=== PATIENT | female | born 2000 | race Caucasian/White ===

== ENCOUNTER 2020-04-22 09:55 | Emergency (ER) | payer OTHER ==
[2020-04-22 10:02] VITALS: RESP 18; TEMP 98
[2020-04-22] MEDS ORDERED: SODIUM CHLORIDE 0.9% 1,000 ML IV STA ×2 (10:21)
--- NOTE | 2020-04-22 10:41 | ED ---
General Adult HPI - General Chief complaint: Syncope Stated complaint: Head Injury, Syncope Time Seen by Provider: 04/22/20 10:06 Source: patient, RN notes reviewed, old records reviewed Mode of arrival: ambulatory Limitations: no limitations - History of Present Illness Initial comments: 20-year-old female presents emergency room today for syncopal episode yesterday. She reports she was standing in a gas station felt dizzy lightheaded and passed out. She reports that she struck her head on the ground. Patient states that she was unconscious for a short while. She reports she had a syncopal episode last week for similar such description of situation. Patient states that she has no chest pain shortness of breath. Denies any nausea or vomiting. She reports that she does have some sinus congestion been feeling dizzy for the past day after hitting her head. - Related Data Previous Rx's Medication Instructions Recorded Amoxic-Pot Clav 875-125Mg 1 tab PO Q12HR #20 tablet 04/22/20 [Augmentin 875-125] Fluticasone Nasal [place] [Flonase 1 spray EA NOSTRIL DAILY #1 bottle 04/22/20 Nasal [place]] Meclizine [Antivert] 25 mg PO BID #14 tab 04/22/20 Allergies Allergy/AdvReac Type Severity Reaction Status Date / Time No Known Allergies Allergy Verified 04/22/20 11:08 Review of Systems ROS Statement: Those systems with pertinent positive or pertinent negative responses have been documented in the HPI. ROS Other: All systems not noted in ROS Statement are negative. Past Medical History Past Medical History: No Reported History History of Any Multi-Drug Resistant Organisms: None Reported Past Surgical History: No Surgical Hx Reported Past Psychological History: No Psychological Hx Reported Smoking Status: Never smoker Past Alcohol Use History: None Reported Past Drug Use History: None Reported General Exam - General Exam Comments Initial Comments: 20 year old female. Alert and oriented. No distress. Limitations: no limitations General appearance: alert, in no apparent distress Head exam: Present: atraumatic, normocephalic, normal inspection Eye exam: Present: normal appearance, PERRL, EOMI. Absent: scleral icterus, conjunctival injection, periorbital swelling ENT exam: Present: normal exam, normal oropharynx, mucous membranes moist, other (no hematympania) Neck exam: Present: normal inspection. Absent: tenderness, meningismus, lymphadenopathy Respiratory exam: Present: normal lung sounds bilaterally. Absent: respiratory distress, wheezes, rales, rhonchi, stridor Cardiovascular Exam: Present: regular rate, normal rhythm, normal heart sounds. Absent: systolic murmur, diastolic murmur, rubs, gallop, clicks GI/Abdominal exam: Present: soft, normal bowel sounds. Absent: distended, tenderness, guarding, rebound, rigid Extremities exam: Present: normal inspection, full ROM, normal capillary refill. Absent: tenderness, pedal edema, joint swelling, calf tenderness Back exam: Present: normal inspection Neurological exam: Present: alert, oriented X3, CN II-XII intact Psychiatric exam: Present: normal affect, normal mood Skin exam: Present: warm, dry, intact, normal color. Absent: rash Course Vital Signs 04/22/20 04/22/20 04/22/20 09:57 11:06 11:36 Temperature 98 F Pulse Rate 89 77 93 Respiratory 18 18 18 Rate Blood Pressure 122/85 107/76 107/78 O2 Sat by Pulse 96 100 97 Oximetry 04/22/20 12:25 Temperature Pulse Rate 83 Respiratory 18 Rate Blood Pressure 108/75 O2 Sat by Pulse 100 Oximetry Medical Decision Making - Medical Decision Making 3-year-old female presents emergency room today for syncopal episode yesterday. He felt struck her head against station. She is feeling dizzy since that time. Any chest pain or shortness breath. Patient's labs reviewed and unremarkable. Patient had a CT of the brain and C-spine. I question some mastoiditis. Patient has no mastoid tenderness. No signs of ear infection. She could have some left sinus tenderness. CT question sphenoid sinusitis. Discussed treating the Patient at this time instructed her antibiotic meclizine for dizziness. Patient's EKG was unremarkable. Discussed the patient's most likely cause for her passing out is due to orthostatic hypotension. Advised her to drink plenty fluids. I discussed return parameters. Advised follow-up with PCP. - Lab Data Result diagrams: 04/22/20 10:25 04/22/20 10:25 Lab Results 04/22/20 04/22/20 04/22/20 Range/Units 10:25 10:25 10:29 WBC 7.5 (4.0-11.0) k/uL RBC 4.63 (3.80-5.40) m/uL Hgb 14.8 (11.4-16.0) gm/dL Hct 44.3 (34.0-46.0) % MCV 95.6 (80.0-100.0) fL MCH 32.0 (25.0-35.0) pg MCHC 33.5 (31.0-37.0) g/dL RDW 12.2 (11.5-15.5) % Plt Count 349 (150-450) k/uL Neutrophils % 57 % Lymphocytes % 33 % Monocytes % 5 % Eosinophils % 2 % Basophils % 0 % Neutrophils # 4.3 (1.3-7.7) k/uL Lymphocytes # 2.5 (1.0-4.8) k/uL Monocytes # 0.4 (0-1.0) k/uL Eosinophils # 0.1 (0-0.7) k/uL Basophils # 0.0 (0-0.2) k/uL PT (9.0-12.0) sec INR (<1.2) APTT (22.0-30.0) sec Sodium 139 (137-145) mmol/L Potassium 3.9 (3.5-5.1) mmol/L Chloride 102 (98-107) mmol/L Carbon Dioxide 26 (22-30) mmol/L Anion Gap 11 mmol/L BUN 9 (7-17) mg/dL Creatinine 0.64 (0.52-1.04) mg/dL Est GFR (CKD-EPI)AfAm >90 (>60 ml/min/1.73 sqM) Est GFR (CKD-EPI)NonAf >90 (>60 ml/min/1.73 sqM) Glucose 121 H (74-99) mg/dL Calcium 9.6 (8.4-10.2) mg/dL Magnesium 2.0 (1.6-2.3) mg/dL Total Bilirubin 0.5 (0.2-1.3) mg/dL AST 39 H (14-36) U/L ALT 42 H (4-34) U/L Alkaline Phosphatase 62 (38-126) U/L Troponin I (0.000-0.034) ng/mL Total Protein 7.4 (6.3-8.2) g/dL Albumin 4.5 (3.5-5.0) g/dL Urine Color Light Yellow Urine Appearance Clear (Clear) Urine pH 6.5 (5.0-8.0) Ur Specific [place] 1.004 (1.001-1.035) Urine Protein Negative (Negative) Urine Glucose (UA) Negative (Negative) Urine Ketones Negative (Negative) Urine Blood Small H (Negative) Urine Nitrite Negative (Negative) Urine Bilirubin Negative (Negative) Urine Urobilinogen <2.0 (<2.0) mg/dL Ur Leukocyte Esterase Negative (Negative) Urine RBC 1 (0-5) /hpf Urine WBC 3 (0-5) /hpf Ur Squamous Epith Cells 1 (0-4) /hpf Urine HCG, Qual (Not Detectd) 04/22/20 04/22/20 04/22/20 Range/Units 10:29 10:30 10:30 WBC (4.0-11.0) k/uL RBC (3.80-5.40) m/uL Hgb (11.4-16.0) gm/dL Hct (34.0-46.0) % MCV (80.0-100.0) fL MCH (25.0-35.0) pg MCHC (31.0-37.0) g/dL RDW (11.5-15.5) % Plt Count (150-450) k/uL Neutrophils % % Lymphocytes % % Monocytes % % Eosinophils % % Basophils % % Neutrophils # (1.3-7.7) k/uL Lymphocytes # (1.0-4.8) k/uL Monocytes # (0-1.0) k/uL Eosinophils # (0-0.7) k/uL Basophils # (0-0.2) k/uL PT 9.7 (9.0-12.0) sec INR 0.9 (<1.2) APTT 22.9 (22.0-30.0) sec Sodium (137-145) mmol/L Potassium (3.5-5.1) mmol/L Chloride (98-107) mmol/L Carbon Dioxide (22-30) mmol/L Anion Gap mmol/L BUN (7-17) mg/dL Creatinine (0.52-1.04) mg/dL Est GFR (CKD-EPI)AfAm (>60 ml/min/1.73 sqM) Est GFR (CKD-EPI)NonAf (>60 ml/min/1.73 sqM) Glucose (74-99) mg/dL Calcium (8.4-10.2) mg/dL Magnesium (1.6-2.3) mg/dL Total Bilirubin (0.2-1.3) mg/dL AST (14-36) U/L ALT (4-34) U/L Alkaline Phosphatase (38-126) U/L Troponin I <0.012 (0.000-0.034) ng/mL Total Protein (6.3-8.2) g/dL Albumin (3.5-5.0) g/dL Urine Color Urine Appearance (Clear) Urine pH (5.0-8.0) Ur Specific [place] (1.001-1.035) Urine Protein (Negative) Urine Glucose (UA) (Negative) Urine Ketones (Negative) Urine Blood (Negative) Urine Nitrite (Negative) Urine Bilirubin (Negative) Urine Urobilinogen (<2.0) mg/dL Ur Leukocyte Esterase (Negative) Urine RBC (0-5) /hpf Urine WBC (0-5) /hpf Ur Squamous Epith Cells (0-4) /hpf Urine HCG, Qual Not Detected (Not Detectd) 04/22/20 10:41 EKG shows normal sinus rhythm with sinus arrhythmia, normal EKG. Ventricular rate of 77 bpm. MD interval is 144 ms. QRS duration is 90 ms. QT QTc is 364/411 ms. - Radiology Data Radiology results: report reviewed CT of the C-spine shows no acute fracture dislocation. CT of the brain of intracranial hemorrhage or midline shift. Possible left-sided mastoiditis correlated clinically. Left sphenoid sinus disease. Chest x-ray is shows no acute process. Disposition Clinical Impression: Concussion, Syncopal episodes Disposition: HOME SELF-CARE Condition: Good Instructions (If sedation given, give patient instructions): Syncope (ED) Additional Instructions: Patient is to drink clear fluids and eat frequently.. Please follow up with family doctor if symptoms have not improved over the next two days. Please return to the emergency room if your symptoms increase or worsen or for any other concerns. Prescriptions: Meclizine [Antivert] 25 mg PO BID #14 tab Amoxic-Pot Clav 875-125Mg [Augmentin 875-125] 1 tab PO Q12HR #20 tablet Fluticasone Nasal [place] [Flonase Nasal [place]] 1 spray EA NOSTRIL DAILY #1 bottle Is patient prescribed a controlled substance at d/c from ED?: No Referrals: None,Stated [Primary Care Provider] - 1-2 days Time of Disposition: 12:13
[2020-04-22 10:50] LABS: Appearance,Urine Clear (Clear); Bilirubin,Urine Negative (Negative); Blood,Urine Small (Negative); Color,Urine Light Yellow; Glucose,Urine (UA) Negative (Negative); Ketones,Urine Negative (Negative); Leukocyte Esterase,Urine Negative (Negative); Nitrite,Urine Negative (Negative); PH, Urine 6.5 (5.0-8.0); Protein,Urine Negative (Negative); RBC,Urine 1 /hpf (0-5); Specific Gravity,Urine 1.004 (1.001-1.035); Squamous Epithelial Cell,Urine 1 /hpf (0-4); Urobilinogen,Urine <2.0 mg/dL (<2.0); WBC,Urine 3 /hpf (0-5)
[2020-04-22 10:56] LABS: Basophils % (A) 0 %; Eosinophils # (A) 0.1 k/uL (0-0.7); Eosinophils % (A) 2 %; HCT 44.3 % (34.0-46.0); HGB 14.8 gm/dL (11.4-16.0); Lymphocytes # (A) 2.5 k/uL (1.0-4.8); Lymphocytes % (A) 33 %; MCHC 33.5 g/dL (31.0-37.0); MCV 95.6 fL (80.0-100.0); Mean Platelet Volume 6.8; Monocytes # (A) 0.4 k/uL (0-1.0); Monocytes % (A) 5 %; Neutrophils # (A) 4.3 k/uL (1.3-7.7); Neutrophils % (A) 57 %; Platelet Count 349 k/uL (150-450); RBC 4.63 m/uL (3.80-5.40); RDW 12.2 % (11.5-15.5); WBC 7.5 k/uL (4.0-11.0)
[2020-04-22 11:00] LABS: INR 0.9 (<1.2); Partial Thromboplastin Time 22.9 sec (22.0-30.0); Prothrombin Time 9.7 sec (9.0-12.0)
[2020-04-22 11:00] LABS: ALT 42 U/L (4-34); AST 39 U/L (14-36); African American GFR (CKD) >90 (>60 ml/min/1.73 sqM); Albumin 4.5 g/dL (3.5-5.0); Alkaline Phosphatase 62 U/L (38-126); Anion Gap 11 mmol/L; Blood Urea Nitrogen 9 mg/dL (7-17); Calcium 9.6 mg/dL (8.4-10.2); Carbon Dioxide 26 mmol/L (22-30); Chloride 102 mmol/L (98-107); Glucose 121 mg/dL (74-99); Non-African American GFR(CKD) >90 (>60 ml/min/1.73 sqM); Potassium 3.9 mmol/L (3.5-5.1); Sodium 139 mmol/L (137-145); Total Bilirubin 0.5 mg/dL (0.2-1.3); Total Protein 7.4 g/dL (6.3-8.2)
--- NOTE | 2020-04-22 11:31 | CT ---
EXAMINATION TYPE: CT brain rossanaine wo con DATE OF EXAM: 04/22/2020 COMPARISON: NONE HISTORY: syncope, neck pain CT DLP: 1271.1 mGycm. Automated Exposure Control for Dose Reduction was Utilized. TECHNIQUE: CT scan of the head and cervical spine are performed without contrast. FINDINGS: There is no acute intracranial hemorrhage, mass effect, or midline shift identified. The ventricles and sulci are within normal limits in size. Edmondson-white matter differentiation is maintain ed. The globes are intact and the visualized sinuses are clear. The calvarium is intact. Some opacifi cation of the left mastoid air cells. Completely opacified left sphenoid sinus. Cervical spine is visualized in its entirety from C1 through upper thoracic levels and demonstrates s light scoliotic curvature positioning without evidence of acute fracture or dislocation. Prevertebra l soft tissue appears within normal limits. The C1-C2 articulation is within normal limits on the co dewayne images. Vertebral body heights and disc space heights are maintained. Spinal canal is preserve d. Thyroid gland is within normal limits. Lung apices show no pneumothorax. IMPRESSION: 1. There is no acute fracture or dislocation evident in the cervical spine. 2. No acute intracranial hemorrhage or midline shift is seen. Possible mild left-sided mastoiditis, c orrelate clinically. Possible left sphenoid sinus disease.
--- NOTE | 2020-04-22 11:51 | XR ---
EXAMINATION TYPE: XR chest 2V DATE OF EXAM: 04/22/2020 CLINICAL HISTORY: Syncope TECHNIQUE: Frontal and lateral views of the chest are obtained. COMPARISON: None FINDINGS: The cardiomediastinal silhouette is within normal limits for size. Pulmonary vasculature i s normal. There is no focal air space opacity, pleural effusion, or pneumothorax seen. The osseous st ructures are intact. IMPRESSION: No acute cardiopulmonary process.
[2020-04-22 12:33] VITALS: BP 108/75; PULSE 83
== END 2020-04-22 12:25 | disposition home or self-care (01) ==
LOC: EC 09:55
DX: S06.0X9A Concussion with loss of consciousness of unspecified duration, initial encounter (principal); R55 Syncope and collapse; W18.09XA Striking against other object with subsequent fall, initial encounter
CPT/HCPCS: 36415; 70450; 71046; 72125; 80053; 81001; 81025; 83735; 84484; 85025; 85610; 85730; 93005; 96360; 96361; 99285